=== PATIENT | female | born 1940 | race Caucasian/White ===

== ENCOUNTER 2016-11-08 09:38 | Day surgery (SDC) | payer OTHER, MEDICARE ==
[~2016-11-08] VITALS: Ht 157.5 cm; Wt 77.2 kg
[~2016-11-08 09:38] MED LIST: HYDROCHLOROTHIA25 MG PO; LIPITOR40 MG PO; LOPRESSOR100 M1 PO; TYLENOL REGULA325 MG PO; ULTRAM50 MG PO; ZESTRIL40 MG PO
[2016-11-08 10:30] VITALS: BP 126/57
[2016-11-08 14:06] VITALS: BP 140/71
== END 2016-11-08 14:45 | disposition home or self-care (01) ==
LOC: SDC 09:38
DX: H35.372 Puckering of macula, left eye (principal); H35.342 Macular cyst, hole, or pseudohole, left eye; F41.9 Anxiety disorder, unspecified; M79.7 Fibromyalgia; I10 Essential (primary) hypertension
CPT/HCPCS: J0690; J2250; J2405; J3010; J3300